=== PATIENT | female | born 1955 | race Caucasian/White ===

== ENCOUNTER 2021-07-03 21:04 | Emergency (ER) | payer MEDICAID, OTHER ==
[2021-07-03] MEDS ORDERED: Acetaminophen 325 MG Tab PO ONE (22:28)
[2021-07-03] MEDS ORDERED: Diazepam 2 MG Tab PO ONE (22:28)
--- NOTE | 2021-07-03 22:43 | EDM.PDOC ---
ED HPI GENERAL MEDICAL PROBLEM - General Chief Complaint: Back Pain or Injury Stated Complaint: SEVERE BACK PAIN Time Seen by Provider: 07/03/21 22:10 - History of Present Illness INITIAL COMMENTS - FREE TEXT/NARRATIVE: 65-year-old female history of diabetes who is presenting with more frequent problems with right flank/back pain. The pain is a stabbing pain that is nonradiating in the right flank tends to come on suddenly and then slowly resolve. It is triggered by movement and walking and is especially triggered by bowel movements. Related to this the patient has had more trouble with bowel movements and she has been taken MiraLAX with some intermittent success. No nausea or vomiting no abdominal pain no fevers or chills no midline back pain no extremity weakness or numbness. Patient is seen her doctor couple times that she had a negative gallbladder ultrasound. She also reports that they checked her blood work and she was told she had a mild kidney abnormality but that the doctor did not seem to want to pursue it further. She has not tried any medications or other management strategies for this pain as yet. Back Pain Score (Numeric/FACES): 10 - Related Data Allergies Allergy/AdvReac Type Severity Reaction Status Date / Time Iodinated Contrast Media Allergy Nausea and Verified 07/03/21 22:37 Vomiting Home Meds: Home Meds Aspirin 07/03/21 [History] Ezetimibe 10 mg PO 07/03/21 [History] Lisinopril/Hydrochlorothiazide [Lisinopril-Hctz 20-25 mg Tab] 1 each PO 07/03/21 [History] amLODIPine Besylate [Amlodipine Besylate] 5 mg PO 07/03/21 [History] Social & Family History - Family History Family Medical History: No Pertinent Family History - Tobacco Use Tobacco Use Status *Q: Never Tobacco User Second Hand Smoke Exposure: No - Caffeine Use Caffeine Use: Reports: None - Recreational Drug Use Recreational Drug Use: No ED ROS GENERAL - Review of Systems Review Of Systems: See Below Free Text/Narrative/Comment: General: No fever. Skin: No rash. Eyes: No vision problems. ENT: No sore throat. Neck: No neck stiffness. Respiratory: No shortness of breath. Cardiac: No chest pain. Gastrointestinal: No nausea, vomiting or abdominal pain. Urinary: No dysuria. Musculoskeletal: No myalgias/arthralgias. Neurologic: No headache. ED EXAM, GENERAL - Physical Exam Exam: See Below Free Text/Narrative:: General Appearance: No acute distress, appears comfortable Skin: No rash HEENT: Normocephalic/atraumatic, sclera anicteric, mucous membranes moist Neck: Normal range of motion Chest and Lungs: Bilateral breath sounds, clear to auscultation Cardiovascular: Regular rate and rhythm, no murmur Abdomen: Soft, non-tender Back: No midline tenderness or step-offs focus of pain is just to the right of midline in the inferior thoracic spine Musculoskeletal: No edema or tenderness Neurologic: Awake, alert, no obvious deficits, moving all extremities Psychiatric: Appropriate, cooperative Course - Vital Signs Last Recorded V/S: Last Vital Signs Temp 97.6 F 07/03/21 22:13 Pulse 71 07/03/21 22:13 Resp 20 07/03/21 22:13 BP 145/67 H 07/03/21 22:13 Pulse Ox 97 07/03/21 22:13 - Orders/Labs/Meds Meds: Medications Discontinued Medications Generic Name Dose Route Start Last Admin Trade Name Michelle PRN Reason Stop Dose Admin Acetaminophen 650 mg 07/03/21 22:28 07/03/21 22:40 Acetaminophen 325 Mg Tab PO 07/03/21 22:29 650 mg NOW ONE Administration Diazepam 2 mg 07/03/21 22:28 07/03/21 22:41 Diazepam 2 Mg Tab PO 07/03/21 22:29 2 mg ONETIME ONE Administration Departure - Departure Time of Disposition: 00:02 Disposition: Home, Self-Care 01 Condition: Good Clinical Impression: Musculoskeletal back pain - Discharge Information *PRESCRIPTION DRUG MONITORING PROGRAM REVIEWED*: Not Applicable *COPY OF PRESCRIPTION DRUG MONITORING REPORT IN PATIENT RK: Not Applicable Instructions: Acute Back Pain, Adult Referrals: Atilio Jolley MD [Primary Care Provider] - Forms: ED Department Discharge Additional Instructions: Your back pain is most likely due to a problem with one of the disks in your back. I recommend that you slowly increase your MiraLAX until you are having a soft easy bowel movement each day. You can take a low-dose of ibuprofen such as 200 mg 3 times a day for the next 4 days to see if that helps your symptoms. I also encourage you to follow-up with your primary care doctor. The following information is given to patients seen in the emergency department who are being discharged to home. This information is to outline your options for follow-up care. We provide all patients seen in our emergency department with a follow-up referral. The need for follow-up, as well as the timing and circumstances, are variable depending upon the specifics of your emergency department visit. If you don't have a primary care physician on staff, we will provide you with a referral. We always advise you to contact your personal physician following an emergency department visit to inform them of the circumstance of the visit and for follow-up with them and/or the need for any referrals to a consulting specialist. The emergency department will also refer you to a specialist when appropriate. This referral assures that you have the opportunity for follow-up care with a specialist. All of these measure are taken in an effort to provide you with optimal care, which includes your follow-up. Under all circumstances we always encourage you to contact your private physician who remains a resource for coordinating your care. When calling for follow-up care, please make the office aware that this follow-up is from your recent emergency room visit. If for any reason you are refused follow-up, please contact the [facility] Emergency Department at and asked to speak to the emergency department charge nurse. Sepsis Event Note (ED) - Evaluation Sepsis Screening Result: No Definite Risk - Focused Exam Vital Signs: Vital Signs Temp Pulse Resp BP Pulse Ox 07/03/21 22:13 97.6 F 71 20 145/67 H 97 - Assessment/Plan Assessment:: 65-year-old female presenting with signs and symptoms that are most consistent with disc pathology. She has no risk factors for epidural abscess or osteomyelitis she has no fever she has no findings of cord compression or cauda equina. Given the location and the severity of the pain renal colic should be considered and noncontrast scan is pending. Patient does have some mild renal insufficiency and so we will avoid Toradol and patient will be given Tylenol and a small dose of Valium. Findings do not suggest aortic dissection or AAA. Abdominal exam is benign no concern for appendicitis diverticulitis etc. 0001: Imaging is normal. Symptoms improved with treatment given the renal insufficiency and the diabetes would avoid high-dose NSAIDs and steroids. Will trial short course of low-dose NSAIDs return precaution discussed and understood patient will follow with primary care.
--- NOTE | 2021-07-03 23:27 | CT ---
Indication: Back pain. Technique: Multiple contiguous axial images were obtained from the lung bases through the symphysis pubis without intravenous contrast enhancement. Please note that all CT scans at this facility use dose modulation, iterative reconstruction, and/or weight-based dosing when appropriate to reduce radiation dose to as low as reasonably achievable. Comparison: Ultrasound of the abdomen dated June 06, 2021. Findings: Mild emphysematous changes of the lung bases are identified. The heart is normal in size. No pericardial effusion is identified. The unenhanced liver, spleen, pancreas, gallbladder, adrenals, and kidneys are normal. No intrahepatic biliary ductal dilatation is identified. Nonobstructing right renal calculus is identified. No hydronephrosis or hydroureter is identified. In the pelvis, the urinary bladder is normal. The uterus is grossly normal. The small and large bowel are normal in caliber. Mild colonic diverticulosis is identified. There is no evidence of diverticulitis. No free air or free fluid is identified within the abdomen or pelvis. The aorta is normal in caliber. Moderate to severe aortic calcifications are identified. Degenerative changes of the spine are identified. This includes vacuum disc phenomenon at L4-L5 and L5-S1. Anterior and posterior osteophytes are seen extending from multiple levels. No fracture or subluxation is identified. Impression: No acute findings of the abdomen or pelvis. No hydronephrosis or hydroureter. No obstructing renal/ureteral calculi Degenerative change of the lower lumbar spine Please note that all CT scans at this facility use dose modulation, iterative reconstruction, and/or weight-based dosing when appropriate to reduce radiation dose to as low as reasonably achievable. Dictated by Ml Oliver MD @ 07/03/2021 11:24:[address] Ml Oliver @ Jul 03 2021 11:24PM
== END 2021-07-04 00:18 | disposition home or self-care (01) ==
LOC: MW.ED 21:04
DX: M54.6 Pain in thoracic spine (principal); Z91.041 Radiographic dye allergy status; Z79.82 Long term (current) use of aspirin; Z79.899 Other long term (current) drug therapy
CPT/HCPCS: 74176; 99284; A9270